=== PATIENT | female | born 1955 ===

== ENCOUNTER → 2021-11-11 | Outpatient (CLI) | payer OTHER | END | disposition home or self-care (01) | LOC: LAB SHORT 08:34 → LAB 08:34 → PLD 08:34 | DX: D48.5 Neoplasm of uncertain behavior of skin (principal) | CPT/HCPCS: 88305 ==

== ENCOUNTER 2024-05-02 10:49 | Day surgery (SDC) | payer OTHER ==
[~2024-05-02] VITALS: Ht 162.6 cm; Wt 46.5 kg
[~2024-05-02 10:49] MED LIST: ESTRADIOL; GABA300 PO; Lactated Ringer's 1,000 ML IV ONE; Lidocaine 2% 5 ML SDV ONE; Lidocaine HCl/Pf 1% 5 ML VIAL ONE
[2024-05-02] MEDS ORDERED: IRON FOLATE-F1 EACH (11:43)
[2024-05-02] MEDS ORDERED: LORAZEPAM1 MG (11:44)
[2024-05-02 11:50] VITALS: BP 121/69
[2024-05-02] MEDS ORDERED: Lactated Ringer's 1,000 ML IV ONE (11:55)
[2024-05-02] MEDS ORDERED: propofoL 50 ML IV ONE (12:20)
[2024-05-02] MEDS ORDERED: Glycopyrrolate 0.2 MG/ML 1MLVIAL ONE (12:20)
[2024-05-02] MEDS ORDERED: Ondansetron HCl 2 MG / ML 2ML Vial ONE (12:20)
== END 2024-05-02 14:06 | disposition home or self-care (01) ==
LOC: ORSCSDS 10:49
PROVIDERS: Internal Medicine Gastroenterology
PROC: 0DBK8ZX Excision of Ascending Colon, Via Natural or Artificial Opening Endoscopic, Diagnostic (ICD-10-PCS; principal; 2024-05-02 12:00)
PROC: 0DBN8ZX Excision of Sigmoid Colon, Via Natural or Artificial Opening Endoscopic, Diagnostic (ICD-10-PCS; principal; 2024-05-02 12:00)
PROC: 0DBL8ZX Excision of Transverse Colon, Via Natural or Artificial Opening Endoscopic, Diagnostic (ICD-10-PCS; principal; 2024-05-02 12:00)
PROC: 0DBH8ZX Excision of Cecum, Via Natural or Artificial Opening Endoscopic, Diagnostic (ICD-10-PCS; principal; 2024-05-02 12:00)
DX: Z12.11 Encounter for screening for malignant neoplasm of colon (principal); Z86.0100 Personal history of colon polyps, unspecified; D12.2 Benign neoplasm of ascending colon; D12.1 Benign neoplasm of appendix; D12.3 Benign neoplasm of transverse colon; D12.5 Benign neoplasm of sigmoid colon; K63.5 Polyp of colon; K57.30 Diverticulosis of large intestine without perforation or abscess without bleeding; K64.4 Residual hemorrhoidal skin tags; G47.33 Obstructive sleep apnea (adult) (pediatric)
CPT/HCPCS: 88305; J2001; J2405; J2704; J7120

== ENCOUNTER 2024-08-09 09:17 | Inpatient (IN) | payer OTHER ==
[~2024-08-09] VITALS: Ht 162.6 cm; Wt 42.5 kg
[~2024-08-09 09:17] MED LIST changes: +IRON FOLATE-F1 EACH; +LORAZEPAM1 MG; -Lactated Ringer's 1,000 ML IV ONE; -Lidocaine 2% 5 ML SDV ONE; -Lidocaine HCl/Pf 1% 5 ML VIAL ONE
[2024-08-09] MEDS ORDERED: NS 1,000 ML IV SCH (09:35)
[2024-08-09] MEDS ORDERED: CefTRIAXone Sodium 1,000 MG in NS 50 ML IV ONE ×2 (09:35→10:05)
[2024-08-09] MEDS ORDERED: Doxycycline Hyclate 100 MG in Dextrose 5% 250 ML IV ONE (09:35)
[2024-08-09 09:47] LABS: Hemoglobin 17.8 g/dL (11.5-16.0); Mean Corpuscular HGB 34.7 pg (26.0-34.0); Mean Corpuscular HGB Conc 35.6 g/dL (31.5-36.5); Mean Corpuscular Volume 98 fL (80-100); Platelet Count 262 K/mm3 (150-400); RDW Coefficient Variation 18.3 % (11.7-14.2); Red Blood Cell Count 5.13 M/mm3 (3.80-5.20)
[2024-08-09 09:50] LABS: NRBC ABSOLUTE 0.06 K/mm3 (0.00-0.02); NRBC Auto 0.3 /100 WBC (0.0-0.2); White Blood Cell Count 23.79 K/mm3 (4.00-11.30)
[2024-08-09] MEDS ORDERED: Vancomycin HCL 1,000 MG in NS 250 ML IV ONE (10:05)
[2024-08-09 10:06] LABS: Albumin, Blood 3.3 g/dL (3.4-5.0); Albumin/Globulin Ratio 0.8 (0.8-1.8); Bilirubin, Total 1.8 mg/dL (0.1-1.0); Bun/Creatinine Ratio 22.2 (12.0-20.0); Calcium, Blood 11.5 mg/dL (8.5-10.1); Creatinine, Blood 0.54 mg/dL (0.40-1.00); Globulin, Blood 4.2 g/dL (2.2-4.0); Potassium, Blood 2.8 mmol/L (3.5-5.5); Thyroid Stimulating Hormone 1.69 uIU/mL (0.360-4.800); Total Protein, Blood 7.5 g/dL (6.4-8.2)
[2024-08-09 10:13] LABS: BASOPHILS PERCENT MAN 0 % (0-2); EOSINOPHILS PERCENT MAN 0 % (0-6); LYMPHOCYTES ABSOLUTE MAN 1.18 K/mm3 (0.84-5.20); LYMPHOCYTES PERCENT MAN 5 % (21-46); METAMYELOCYTE ABSOLUTE MAN 0.23 K/mm3 (0.00-0.00); METAMYELOCYTE PERCENT MAN 1 % (0-0); MONOCYTES ABSOLUTE MAN 4.99 K/mm3 (0.16-1.47); MONOCYTES PERCENT MAN 21 % (4-13); MYELOCYTE ABSOLUTE MAN 0.95 K/mm3 (0.00-0.00); MYELOCYTE PERCENT MAN 4 % (0-0); NEUTROPHILS ABSOLUTE MAN 16.17 K/mm3 (1.96-9.15); PLASMA CELL ABSOLUTE MAN 0.23 K/mm3 (0.00-0.00); PLASMA CELLS PERCENT MAN 1 % (0-0); SEG NEUTROPHILS PERCENT MAN 68 % (41-73); TOTAL CELLS COUNTED 100
[2024-08-09] MEDS ORDERED: Potassium Chl 20MEQ/Water100ML 100 ML IV SCH (10:15)
[2024-08-09 10:45] LABS: Base Excess Venous 3.7 mmol/L; Bicarbonate Venous 26.6 mmol/L (24.0-30.0); PCO2 Venous 42.6 mmHg (38-42); pH Blood Venous 7.43 (7.34-7.37)
[2024-08-09 12:24] LABS: Source, Urine Straight Cath
[2024-08-09 12:34] LABS: Appearance, Urine Clear (Clear); Bilirubin, Urine Neg (Neg); Blood, Urine 5+ (Neg); Color, Urine Yellow (P-Yellow); Glucose Qualitative, Urine Neg (Neg); Ketones, Urine 3+ (Neg); Leukocyte Esterase, Urine 1+ (Neg); Nitrite, Urine Neg (Neg); Protein, Urine 3+ (Neg); Urobilinogen, Urine 2+ (Normal); pH, Urine 6.5 (5.0-8.0)
[2024-08-09 12:47] LABS: Bacteria Few /hpf; Red Blood Cells, Urine 25-50 /hpf (0-2); Squamous Epithelial Cells Few /hpf (Few)
[2024-08-09] MEDS ORDERED: CefTRIAXone Sodium 2,000 MG in NS 100 ML IV ONE (12:55)
[2024-08-09 13:01] LABS: U Amphetamine Screen Not Detected; U Barbituate Screen Not Detected; U Benzodiazapine Screen Not Detected; U Buprenorphine Screen Not Detected; U Cannabinoids Screen DETECTED; U Cocaine Screen Not Detected; U Methadone Screen Not Detected; U Methamphetamine Screen Not Detected; U Opiates Screen Not Detected; U Oxycodone Screen Not Detected; U Phencyclidine Screen Not Detected
[2024-08-09 13:30] LABS: Influenza B, PCR NEGATIVE (NEGATIVE); Resp Syncytial Virus, PCR NEGATIVE (NEGATIVE); SARS-Cov-2 (COVID-19) PCR, MMC NEGATIVE (NEGATIVE)
[2024-08-09 13:36] LABS: Influenza A, PCR POSITIVE (NEGATIVE)
[2024-08-09] MEDS ORDERED: Ondansetron HCl 2 MG / ML 2ML Vial IV PRN (16:30)
[2024-08-09] MEDS ORDERED: Lactated Ringer's 1,000 ML IV ONE (16:40)
[2024-08-09] MEDS ORDERED: Potassium Phosphate Dibasic 30 MM in Dextrose 5% 500 ML IV SCH (18:00)
[2024-08-09] MEDS ORDERED: Lactated Ringer's 1,000 ML IV SCH ×2 (18:00)
[2024-08-09 18:02] LABS: Bun/Creatinine Ratio 21.4 (12.0-20.0); Calcium, Blood 9.9 mg/dL (8.5-10.1); Creatinine, Blood 0.47 mg/dL (0.40-1.00); Potassium, Blood 3.6 mmol/L (3.5-5.5)
[2024-08-09 18:15] VITALS: BP 135/87
--- NOTE | 2024-08-09 18:19 | NUR ---
PT ARRIVED TO MEDICAL FLOOR, ALERT AND ORIENTED TO NONE. WHEN ASKED NAME , PT LOOKS TO THE LEFT AND DOES NOT ANSWER. BOLUS CONTINUED FROM ER. PT APPEARS MALNUTRITIONED, NOT SPEAKING. PURWICK IN PLACE. PT HAS ATTEND FULL OF URINE. BED ALARM ON WITH CALL LIGHT IN REACH. PER DR. LEYDI MUNGUIA TO DRINK AND EAT LONG BEDSIDE SWALLOW EVAL GOES WELL. PT OFFERED WATER,
[2024-08-09 19:25] VITALS: BP 154/82
[2024-08-09] MEDS ORDERED: NS 250 ML IV PRN (20:15)
[2024-08-09] MEDS ORDERED: Azithromycin 500 MG in NS 250 ML IV SCH (21:00)
[2024-08-09] MEDS ORDERED: Lactobacil 2-S.Thermo-Bifido 1 1 Cap PO SCH (21:00)
[2024-08-10 04:22] VITALS: BP 138/90
--- NOTE | 2024-08-10 04:51 | NUR ---
SHIFT SUMMARY. PATIENT IS ALERT TO SELF AND PLACE. PATIENT DOES NOT USE CALL LIGHT BUT WILL YELL OUT HELP. PATIENT IS A 1P ASSIST TO THE BSC. PATIENT HAS BED ALARM ON FOR SAFETY. PATIENT IS PLEASANTLY CONFUSED. SHE IS DIRECTABLE. PATIENT HAS LR INFUSING PER ORDERS. BED IS LOCKED IN THE LOWEST POSITION WITH CALL LIGHT IN REACH. CALL LIGHT IN REACH. CARE IS ONGOING.
[2024-08-10 06:46] LABS: Hematocrit 41.1 % (33.0-51.0); Hemoglobin 14.2 g/dL (11.5-16.0); Mean Corpuscular HGB 34.9 pg (26.0-34.0); Mean Corpuscular HGB Conc 34.5 g/dL (31.5-36.5); Mean Corpuscular Volume 101 fL (80-100); Mean Platelet Volume 12.3 fL (9.1-12.4); NRBC ABSOLUTE 0.04 K/mm3 (0.00-0.02); NRBC Auto 0.2 /100 WBC (0.0-0.2); Platelet Count 271 K/mm3 (150-400); RDW Coefficient Variation 18.1 % (11.7-14.2); RDW Standard Deviation 67.1 fL (35.1-46.3); Red Blood Cell Count 4.07 M/mm3 (3.80-5.20); White Blood Cell Count 25.24 K/mm3 (4.00-11.30)
[2024-08-10 07:03] LABS: Magnesium, Blood 1.8 mg/dL (1.6-2.4)
[2024-08-10 07:04] LABS: Bun/Creatinine Ratio 17.7 (12.0-20.0); Calcium, Blood 10.5 mg/dL (8.5-10.1); Creatinine, Blood 0.45 mg/dL (0.40-1.00); Potassium, Blood 3.1 mmol/L (3.5-5.5)
[2024-08-10 07:14] LABS: BASOPHILS PERCENT MAN 0 % (0-2); EOSINOPHILS PERCENT MAN 0 % (0-6); LYMPHOCYTES PERCENT MAN 2 % (21-46); METAMYELOCYTE ABSOLUTE MAN 1.26 K/mm3 (0.00-0.00); METAMYELOCYTE PERCENT MAN 5 % (0-0); MONOCYTES ABSOLUTE MAN 7.31 K/mm3 (0.16-1.47); MONOCYTES PERCENT MAN 29 % (4-13); NEUTROPHILS ABSOLUTE MAN 16.15 K/mm3 (1.96-9.15); SEG NEUTROPHILS PERCENT MAN 64 % (41-73); TOTAL CELLS COUNTED 100
[2024-08-10] MEDS ORDERED: Potassium Phosphate Dibasic 30 MM in Dextrose 5% 500 ML IV STA ×2 (07:14→17:33)
[2024-08-10] MEDS ORDERED: Magnesium Sulf 2 GM/Water 50ML 50 ML IV ONE (07:20)
[2024-08-10 07:55] VITALS: BP 135/82
[2024-08-10] MEDS ORDERED: Lactated Ringer's 1,000 ML IV SCH (08:00)
[2024-08-10] MEDS ORDERED: Azithromycin 250 MG Tab PO SCH (09:00)
[2024-08-10] MEDS ORDERED: Enoxaparin 40 MG/0.4 ML SYR SC SCH (09:00)
[2024-08-10] MEDS ORDERED: Ferrous Gluconate 325 MG Tablet PO SCH (09:00)
[2024-08-10] MEDS ORDERED: Vitamin B Complex 1 EA Softgel PO SCH (09:00)
[2024-08-10 11:50] LABS: Calcium, Blood 10.9 mg/dL (8.5-10.1); Creatinine, Blood 0.44 mg/dL (0.40-1.00); Phosphorus, Blood 2.6 mg/dL (2.5-4.9); Potassium, Blood 3.5 mmol/L (3.5-5.5)
[2024-08-10] MEDS ORDERED: CefTRIAXone Sodium 2,000 MG in NS 100 ML IV SCH (12:00)
[2024-08-10 12:53] LABS: Albumin, Blood 2.7 g/dL (3.4-5.0); Albumin/Globulin Ratio 0.8 (0.8-1.8); Bun/Creatinine Ratio 16.5 (12.0-20.0); Calcium, Blood 10.5 mg/dL (8.5-10.1); Creatinine, Blood 0.43 mg/dL (0.40-1.00); Globulin, Blood 3.4 g/dL (2.2-4.0); Total Protein, Blood 6.1 g/dL (6.4-8.2)
[2024-08-10] MEDS ORDERED: MIRTAZAPINE7.5 M1 PO (14:52)
[2024-08-10] MEDS ORDERED: ESCI20 PO (14:52)
[2024-08-10] MEDS ORDERED: FEMRING VAG (14:55)
[2024-08-10 15:57] VITALS: BP 133/66
--- NOTE | 2024-08-10 18:14 | NUR ---
SHIFT SUMMARY PT A&O TO SELF AND PLACE BUT IS PLEASANTLY ONFUSED. PT SLOW TO RESPOND. PT HAS A POOR APPETITE, SEEN BY DIETARY TODAY. PT RECEIVED SCHEDULED MEDICATIONS WITH NO ADVERSE REACTIONS. VSS, NO COMPLAINTS OF CP/PRESSURE OR SOB. PT IN ROOM FOR MOST OF SHIFT. PT SPENT MOST OF SHIFT IN BED RESTING OR SITTING UP AT THE SIDE. NO ACUTE EVENTS AT THIS TIME. PT LEFT IN A POSITION OF SAFETY WITH FALL PRECAUTIONS IN PLACE, REPOSITIONED Q2HRS ENCOURAGED, AND CALL LIGHT IN REACH.
[2024-08-10] MEDS ORDERED: Bisacodyl 10 MG Supp PR PRN (18:15)
[2024-08-10] MEDS ORDERED: Polyethylene Glycol 3350 17 gm PO PRN (19:00)
[2024-08-10] MEDS ORDERED: Docusate Sodium 100 MG Cap PO SCH (19:00)
[2024-08-10] MEDS ORDERED: Polyethylene Glycol 3350 17 gm PO ONE (19:00)
[2024-08-10 19:31] VITALS: BP 132/86
[2024-08-10] MEDS ORDERED: Gabapentin 300 MG Cap PO SCH (21:00)
[2024-08-10] MEDS ORDERED: Zinc Sulfate 220 MG Cap (Provides 50MG) PO SCH (21:00)
[2024-08-10] MEDS ORDERED: Protein Supplement 30 ML UD PO SCH (21:00)
[2024-08-11 02:06] VITALS: BP 135/82
--- NOTE | 2024-08-11 04:03 | NUR ---
PATIENT CONFUSED THIS SHIFT. PATIENT ATTEMPTING OOB UNSAFELY, NOT REDIRECTABLE, NOT ABLE TO FOLLOW INSTRUCTION. PATIENT APPEARS TO NOT UNDERSTAND OR HAS DIFFICULTY PROCESSING WHAT IS BEING SAID. PATIENT IS ALERT TO SELF AND PLACE. BED ALARM IS ON FOR SAFETY. PATIENT IS IMPULSIVE. PATIENT LOST BOTH IV'S THIS SHIFT-CHARGE NURSE TO ASSESS AND ATTEMPT TO PLACE IV. PATIENT TRANSFERED FROM ROOM 326 TO ROOM 348.
[2024-08-11 06:32] LABS: Hematocrit 39.3 % (33.0-51.0); Hemoglobin 13.6 g/dL (11.5-16.0); Mean Corpuscular HGB 34.7 pg (26.0-34.0); Mean Corpuscular HGB Conc 34.6 g/dL (31.5-36.5); Mean Corpuscular Volume 100 fL (80-100); NRBC ABSOLUTE 0.05 K/mm3 (0.00-0.02); NRBC Auto 0.2 /100 WBC (0.0-0.2); Platelet Count 243 K/mm3 (150-400); RDW Coefficient Variation 17.6 % (11.7-14.2); RDW Standard Deviation 65.1 fL (35.1-46.3); Red Blood Cell Count 3.92 M/mm3 (3.80-5.20)
[2024-08-11 06:35] LABS: Mean Platelet Volume 13.7 fL (9.1-12.4)
[2024-08-11] MEDS ORDERED: Potassium Phosphate Dibasic 30 MM in Dextrose 5% 500 ML IV STA (06:56)
[2024-08-11 07:25] VITALS: BP 151/83
[2024-08-11 07:27] LABS: BAND PERCENT MAN 2 % (0-8); BASOPHILS PERCENT MAN 0 % (0-2); EOSINOPHILS PERCENT MAN 0 % (0-6); LYMPHOCYTES % ATYPICAL MANUAL 1 % (0-0); LYMPHOCYTES ABSOLUTE MAN 1.15 K/mm3 (0.84-5.20); LYMPHOCYTES PERCENT MAN 4 % (21-46); MONOCYTES ABSOLUTE MAN 6.44 K/mm3 (0.16-1.47); MONOCYTES PERCENT MAN 28 % (4-13); MYELOCYTE ABSOLUTE MAN 0.92 K/mm3 (0.00-0.00); MYELOCYTE PERCENT MAN 4 % (0-0); NEUTROPHILS ABSOLUTE MAN 14.49 K/mm3 (1.96-9.15); SEG NEUTROPHILS PERCENT MAN 61 % (41-73); TOTAL CELLS COUNTED 100
[2024-08-11] MEDS ORDERED: Dronabinol 2.5 MG Cap PO SCH (07:30)
[2024-08-11 08:28] LABS: Albumin, Blood 2.4 g/dL (3.4-5.0); Albumin/Globulin Ratio 0.8 (0.8-1.8); Bilirubin, Total 0.7 mg/dL (0.1-1.0); Calcium, Blood 9.3 mg/dL (8.5-10.1); Creatinine, Blood 0.5 mg/dL (0.40-1.00); Globulin, Blood 3.1 g/dL (2.2-4.0); Phosphorus, Blood 4.3 mg/dL (2.5-4.9); Potassium, Blood 3.5 mmol/L (3.5-5.5); Total Protein, Blood 5.5 g/dL (6.4-8.2)
[2024-08-11] MEDS ORDERED: Citalopram Hydrobromide 20 MG Tab PO SCH (09:00)
[2024-08-11] MEDS ORDERED: Thiamine HCl 100 MG Tab PO SCH (09:00)
[2024-08-11] MEDS ORDERED: Multivitamins 1 Tab PO SCH (09:00)
[2024-08-11] MEDS ORDERED: Folic Acid 1 MG TAB PO SCH (09:00)
[2024-08-11] MEDS ORDERED: Mirtazapine 15 MG Tab PO SCH (09:00)
--- NOTE | 2024-08-11 11:43 | NUR ---
NOTE PT ORIENTED TO SELF AND LOCATION. THIS AM, PT VERY IMPULSIVE GETTING UP TO BS STATING "NEED TO PEE." WAS NOT REDIRECTABLE. CUSTOM FEED CORN OPERATOR AND THIS RN COULD NOT STEP AWAY DUE TO IMPULSIVITY. CUSTOM FEED CORN OPERATOR STATED "PT THREW TELE, SAID THE F WORD." TRIED TO PROVIDE A CALM ENVIROMENT, DR. REED, ROUNDED ON PT, TRIED TO ASSIST WITH PT TAKING MEDS, PT ONLY TOOK MARINOL AND PROBIOTIC. PT REFUSED REST OF MEDS. REQUESTED SITTER FOR PT DUE TO IMPULSIVITY. PT ALSO REFUSED FOOD THIS AM. DR. WOODS ROUNDED ON PT, TOLD HIM MY CONCERNS. HE SAID D/C TELE WAS OK, PT OFF TELE. PT CALLED TO SEE IF SEEING A FAMILIAR FACE WOULD HELP. HE ARRIVED AT 1150. PT CURRENT IN BED WITH EYES CLOSED. UNLABORED EVEN BREATHS.
[2024-08-11 15:03] LABS: Albumin, Blood 2.5 g/dL (3.4-5.0); Albumin/Globulin Ratio 0.8 (0.8-1.8); Bilirubin, Total 0.6 mg/dL (0.1-1.0); Bun/Creatinine Ratio 10.6 (12.0-20.0); Calcium, Blood 9.7 mg/dL (8.5-10.1); Creatinine, Blood 0.47 mg/dL (0.40-1.00); Globulin, Blood 3.3 g/dL (2.2-4.0); Potassium, Blood 3.8 mmol/L (3.5-5.5); Total Protein, Blood 5.8 g/dL (6.4-8.2)
[2024-08-11] MEDS ORDERED: Lactated Ringer's 1,000 ML IV SCH (17:00)
--- NOTE | 2024-08-11 17:10 | NUR ---
MET WITH PATIENT. DISCUSSED WITH DIETITION. DISCUSSED WITH PROVIDER. PLAN IS TO HAVE PSYCH CONSULT, THEN FOLLOW UP NEEDED.
--- NOTE | 2024-08-11 18:12 | NUR ---
SHIFT SUMMARY PT A&0X4. PT ADMITTED FOR SEPSIS W/ ACUTE HYPOXIC RESP FAILURE. PT RECEIVED ANTIBIOTICS IV. PT RECEIVED POTASSIUM PHOS. PT HAS LR RUNNING AT 75ML/HR, PT ON ROOM AIR, SPO2 IS 91%. PT REPORTS NO SOB. PT IS MALNUTRITIONED. PT DECLINED MOST MEDS THIS AM SOME MEDS WERE PT DECLINES ALL MEALS. PT REPORTED DIZZINESS DURING AMBULATION, DR. REED NOTIFIED. PT HAS SITTER, PT HAS BEEN LESS IMPULSIVE WITH PRESENT. PALLIATIVE CARE CONSULTED. CREDIT COLLECTIONS REP CONSULTED. AWAITING SPEECH THERAPY ASSESS TOMORROW, AND POSSIBLE DOBHOFF PLACEMENT FOR FEEDINGS. PT IN BED, BED IN LOWEST POSITION. BED ALARM ON. CALL LIGHT IN REACH.
[2024-08-11 19:32] VITALS: BP 141/95
[2024-08-11] MEDS ORDERED: Oseltamivir Phosphate 75 MG Cap PO ONE (21:00)
[2024-08-11] MEDS ORDERED: Oseltamvir Phosphate 30 MG Cap PO SCH (22:00)
[2024-08-12 03:20] VITALS: BP 136/72
--- NOTE | 2024-08-12 04:28 | NUR ---
WAX BALL KNOCK OUT WORKER SUMMARY PT HAD A BOWEL MOVEMENT THIS SHIFT. HER COGNITION APPEARED TO IMPROVE A LITTLE COMPARED TO YESTERDAY. SHE HAS BEEN ORIENTED X 2, PLEASANT, AND EASILTY REDIRECTABLE, ALTHOUGH SHE STILL FREQUENTLY TRIES TO BED EXIT WITHOUT CALLING FIRST. SITTER AT BEDSIDE. PT IS STILL REFUSING TO EAT. PER REPORT FROM DAY SHIFT NURSE, PT WILL BE GETTING A LOG MARKER EVAL 08/12 AND THEN AFTERWARDS WE WILL BE PLACING A DOBHOFF TUBE. ANTICIPATE THAT PT WILL CONTINUE NEEDING A SITTER TO HELP PREVENT PT PULLING OUT HER DOBHOFF TUBE.
[2024-08-12 06:15] LABS: Hematocrit 36.6 % (33.0-51.0); Hemoglobin 12.8 g/dL (11.5-16.0); Mean Corpuscular HGB 35.4 pg (26.0-34.0); Mean Corpuscular Volume 101 fL (80-100); NRBC ABSOLUTE 0.05 K/mm3 (0.00-0.02); NRBC Auto 0.2 /100 WBC (0.0-0.2); Platelet Count 225 K/mm3 (150-400); RDW Coefficient Variation 17.2 % (11.7-14.2); RDW Standard Deviation 64.4 fL (35.1-46.3); Red Blood Cell Count 3.62 M/mm3 (3.80-5.20); White Blood Cell Count 20.95 K/mm3 (4.00-11.30)
[2024-08-12 06:16] LABS: Mean Platelet Volume 14.1 fL (9.1-12.4)
[2024-08-12 06:47] LABS: Magnesium, Blood 2.1 mg/dL (1.6-2.4)
[2024-08-12 06:48] LABS: Albumin, Blood 2.3 g/dL (3.4-5.0); Albumin/Globulin Ratio 0.8 (0.8-1.8); Bilirubin, Total 0.7 mg/dL (0.1-1.0); Bun/Creatinine Ratio 5.8 (12.0-20.0); Calcium, Blood 9.7 mg/dL (8.5-10.1); Creatinine, Blood 0.52 mg/dL (0.40-1.00); Globulin, Blood 2.9 g/dL (2.2-4.0); Phosphorus, Blood 2.5 mg/dL (2.5-4.9); Potassium, Blood 3.6 mmol/L (3.5-5.5); Total Protein, Blood 5.2 g/dL (6.4-8.2)
[2024-08-12] MEDS ORDERED: Potassium Phosphate Dibasic 30 MM in Dextrose 5% 500 ML IV STA (07:09)
[2024-08-12 07:11] LABS: BAND PERCENT MAN 4 % (0-8); BASOPHILS PERCENT MAN 0 % (0-2); EOSINOPHILS PERCENT MAN 0 % (0-6); LYMPHOCYTES % ATYPICAL MANUAL 1 % (0-0); LYMPHOCYTES ABSOLUTE MAN 1.04 K/mm3 (0.84-5.20); LYMPHOCYTES PERCENT MAN 4 % (21-46); MONOCYTES ABSOLUTE MAN 7.54 K/mm3 (0.16-1.47); MONOCYTES PERCENT MAN 36 % (4-13); MYELOCYTE PERCENT MAN 1 % (0-0); NEUTROPHILS ABSOLUTE MAN 12.15 K/mm3 (1.96-9.15); SEG NEUTROPHILS PERCENT MAN 54 % (41-73); TOTAL CELLS COUNTED 100
[2024-08-12] MEDS ORDERED: Venlafaxine HCl 37.5 MG CapCR PO SCH (09:00)
[2024-08-12] MEDS ORDERED: Mirtazapine 15 MG Tab PO SCH (09:00)
[2024-08-12] MEDS ORDERED: Venlafaxine HCl 75 MG CapCR PO SCH (09:00)
[2024-08-12] MEDS ORDERED: Azithromycin 250 MG Tab PO SCH (09:00)
[2024-08-12 10:30] VITALS: BP 130/91
--- NOTE | 2024-08-12 11:54 | NUR ---
PT STATES NOT GOTTEN OVER LOSS OF HER YELLOW LAB.
--- NOTE | 2024-08-12 13:37 | NUR ---
DR REED STATES NO NG DAUBHOFF. D/C ORDER
[2024-08-12] MEDS ORDERED: Lactated Ringer's 1,000 ML IV SCH (15:00)
--- NOTE | 2024-08-12 17:22 | NUR ---
PT PLEASANT ORIENTED X3 AND COOPERATIVE TODAY. NO C/O PAIN FOR ME. SHE AMBULATED TO BATHROOM X2 FOR ME TODAY. IS QUITE WEAK, BUT DID PRETTY WELL. 1 MIN ASST. IN AND STATES SHES MUCH BETTER. IS EATING ENSURES X2 SO FAR TODAY. PLUS MINIMAL MEALS. DR REED STOPPED FEEDING TUBE. NO FURTHER CONCERNS NOTED TODAY.
[2024-08-12 17:28] VITALS: BP 137/94
[2024-08-12 20:25] VITALS: BP 138/90
[2024-08-13 02:25] VITALS: BP 127/81
[2024-08-13 05:44] LABS: Hematocrit 36.5 % (33.0-51.0); Hemoglobin 12.3 g/dL (11.5-16.0); Mean Corpuscular HGB 34.3 pg (26.0-34.0); Mean Corpuscular HGB Conc 33.7 g/dL (31.5-36.5); Mean Corpuscular Volume 102 fL (80-100); NRBC ABSOLUTE 0.03 K/mm3 (0.00-0.02); NRBC Auto 0.2 /100 WBC (0.0-0.2); Platelet Count 185 K/mm3 (150-400); RDW Coefficient Variation 17.2 % (11.7-14.2); RDW Standard Deviation 64.9 fL (35.1-46.3); Red Blood Cell Count 3.59 M/mm3 (3.80-5.20)
--- NOTE | 2024-08-13 06:00 | NUR ---
PROVIDER NETWORK MGR SUMMARY PTS COGNITION APPEARS TO BE IMPROVING RAPIDLY. SHE IS MUCH MORE ORIENTED THAN YESTERDAY. SHE HAS STARTED PUTTING A LOT OF EFFORT INTO EATING AND DRINKING BECAUSE SHE DOESNT WANT A FEEDING TUBE. SHE HAS BEEN DRINKING ENSURES AND EATING SNACKS AND FEELS MOTIVATED TO HELP HERSELF GET BETTER. SHE STILL DOESNT REMEMBER TO CALL BEFORE GETTING OUT OF BED. HER BED ALARM IS ON AND HER CALL LIGHT IS WITHIN REACH.
[2024-08-13 06:07] LABS: Albumin, Blood 2.3 g/dL (3.4-5.0); Albumin/Globulin Ratio 0.8 (0.8-1.8); Bilirubin, Total 0.5 mg/dL (0.1-1.0); Bun/Creatinine Ratio 13.7 (12.0-20.0); Calcium, Blood 9.8 mg/dL (8.5-10.1); Creatinine, Blood 0.51 mg/dL (0.40-1.00); Globulin, Blood 2.8 g/dL (2.2-4.0); Magnesium, Blood 2.1 mg/dL (1.6-2.4); Phosphorus, Blood 2.6 mg/dL (2.5-4.9); Potassium, Blood 3.8 mmol/L (3.5-5.5); Total Protein, Blood 5.1 g/dL (6.4-8.2)
[2024-08-13 06:14] LABS: BAND PERCENT MAN 3 % (0-8); BASOPHILS PERCENT MAN 0 % (0-2); EOSINOPHILS ABSOLUTE MAN 0.17 K/mm3 (0.00-0.68); EOSINOPHILS PERCENT MAN 1 % (0-6); LYMPHOCYTES % ATYPICAL MANUAL 2 % (0-0); LYMPHOCYTES ABSOLUTE MAN 1.53 K/mm3 (0.84-5.20); LYMPHOCYTES PERCENT MAN 7 % (21-46); METAMYELOCYTE ABSOLUTE MAN 0.17 K/mm3 (0.00-0.00); METAMYELOCYTE PERCENT MAN 1 % (0-0); MONOCYTES ABSOLUTE MAN 4.76 K/mm3 (0.16-1.47); MONOCYTES PERCENT MAN 28 % (4-13); MYELOCYTE ABSOLUTE MAN 0.51 K/mm3 (0.00-0.00); MYELOCYTE PERCENT MAN 3 % (0-0); NEUTROPHILS ABSOLUTE MAN 9.86 K/mm3 (1.96-9.15); SEG NEUTROPHILS PERCENT MAN 55 % (41-73); TOTAL CELLS COUNTED 100
[2024-08-13 08:01] VITALS: BP 137/91
--- NOTE | 2024-08-13 16:29 | NUR ---
PT PLEASANT TODAY. NO C/O PAIN. VERY SLOW AND UNABLE TO ANSWER DETAILED QUESTIONS IN THE MORNING. IMPROVED AFTER 11 AM. SPOKE TO AND HE STATES IS PRETTY MUCH A TREND THAT SHE STAYS UP TO 2-3 AM AND SLEEPS UNTIL 9-10-11 AM. STATES PT IS QUITE DROWSY AND NOT TALKATIVE WHEN FIRST UP IN AM. STATES UNSURE IF WOULD ANSWER DETAILED QUESTIONS WHEN FIRST UP OR NOT. DID NOTICE SHE IS UNSTEADY ON FEET IN AM. PT MORE AWAKE THIS AFTERNOON. DID TAKE SHOWER TODAY. NO OTHER CONCERNS NOTED TODAY.. BED IN LOW POSITION, CALL LITE IN REACH, BED ALARM ON FOR SAFETY
[2024-08-13 16:43] VITALS: BP 151/97
[2024-08-13 19:52] VITALS: BP 142/94
[2024-08-13 20:42] LABS: 25-HYDROXYVITAMIN D2 <1.0 ng/mL; 25-HYDROXYVITAMIN D2 D3 TOTAL 90.3 ng/mL (30.0-80.0); 25-HYDROXYVITAMIN D3 90.3 ng/mL
[2024-08-14 03:33] LABS: ZINC,SERUM/PLASMA 52.5 ug/dL (60.0-120.0)
--- NOTE | 2024-08-14 05:06 | NUR ---
SUPERVISOR CUSTOMER COMPLAINT SERVICE SUMMARY PTS COGNITION WAXES AND WANES BUT OVERALL HER MENTATION IS IMPROVING. SHE IS STILL A LITTLE SLOW TO RESPOND AT TIMES. SHE HAS BEEN PUTTING GOOD EFFORT INTO EATING AND DRINKING. SHE ATE A FEW SNACKS OVERNIGHT AND HAD AN ENSURE AT BEDTIME. HER IVF ORDER HAS AND SHE IS NOW SALINE LOCKED AND WE ARE ENCOURAGING ORAL INTAKE. SHE STILL DOESNT REMEMBER TO CALL BEFORE GETTING OUT OF BED. HER BED ALARM IS ON AND HER CALL LIGHT IS WITHIN REACH.
[2024-08-14 05:49] VITALS: BP 115/70
[2024-08-14 06:25] LABS: Magnesium, Blood 2.4 mg/dL (1.6-2.4); Phosphorus, Blood 3.2 mg/dL (2.5-4.9)
[2024-08-14 07:40] VITALS: BP 130/83
[2024-08-14 07:57] LABS: Hemoglobin 12.6 g/dL (11.5-16.0); Mean Corpuscular HGB 34.8 pg (26.0-34.0); Mean Corpuscular HGB Conc 33.2 g/dL (31.5-36.5); Mean Corpuscular Volume 105 fL (80-100); Mean Platelet Volume 13.5 fL (9.1-12.4); NRBC ABSOLUTE 0.04 K/mm3 (0.00-0.02); NRBC Auto 0.3 /100 WBC (0.0-0.2); Platelet Count 166 K/mm3 (150-400); RDW Coefficient Variation 17.2 % (11.7-14.2); RDW Standard Deviation 67.2 fL (35.1-46.3); Red Blood Cell Count 3.62 M/mm3 (3.80-5.20); White Blood Cell Count 15.57 K/mm3 (4.00-11.30)
[2024-08-14] MEDS ORDERED: Lactated Ringer's 1,000 ML IV SCH (08:00)
[2024-08-14 08:14] LABS: Albumin, Blood 2.2 g/dL (3.4-5.0); Albumin/Globulin Ratio 0.7 (0.8-1.8); Bilirubin, Total 0.4 mg/dL (0.1-1.0); Calcium, Blood 10.4 mg/dL (8.5-10.1); Creatinine, Blood 0.67 mg/dL (0.40-1.00); Globulin, Blood 3.1 g/dL (2.2-4.0); Potassium, Blood 3.6 mmol/L (3.5-5.5); Total Protein, Blood 5.3 g/dL (6.4-8.2)
[2024-08-14 08:19] LABS: BAND PERCENT MAN 1 % (0-8); BASOPHILS PERCENT MAN 0 % (0-2); EOSINOPHILS ABSOLUTE MAN 0.15 K/mm3 (0.00-0.68); EOSINOPHILS PERCENT MAN 1 % (0-6); LYMPHOCYTES ABSOLUTE MAN 1.24 K/mm3 (0.84-5.20); LYMPHOCYTES PERCENT MAN 8 % (21-46); MONOCYTES ABSOLUTE MAN 4.98 K/mm3 (0.16-1.47); MONOCYTES PERCENT MAN 32 % (4-13); NEUTROPHILS ABSOLUTE MAN 9.18 K/mm3 (1.96-9.15); SEG NEUTROPHILS PERCENT MAN 58 % (41-73); TOTAL CELLS COUNTED 100
[2024-08-14 15:22] VITALS: BP 135/91
--- NOTE | 2024-08-14 17:45 | NUR ---
SHIFT SUMMARY PT A&OX3-SLOW TO RESPOND, VSS, AMB W/ ASSIST, VOIDING, AND DENIED PAIN. PT AMBULATED THE HALLWAY X1 THIS SHIFT. PT HAD 15% OF BREAKFAST AND 20% AT LUNCH. PO INTAKE ENCOURAGED. LR CONT TO INFUSE PER ORDER. NO OTHER ACUTE CHANGES. CALL LIGHT WITHIN REACH AND BED ALARM ON FOR SAFETY.
[2024-08-14 20:17] VITALS: BP 134/87
[2024-08-15 02:33] LABS: PTHRP BY LC-MS/MS,PLASMA 4.9 pmol/L (0.0-3.4)
[2024-08-15 06:25] VITALS: BP 135/90
--- NOTE | 2024-08-15 07:10 | NUR ---
ENERGY SCHEDULER SUMMARY PTS COGNITION WAXES AND WANES BUT OVERALL HER MENTATION IS IMPROVING. SHE IS STILL A LITTLE SLOW TO RESPOND AT TIMES. SHE HAS BEEN PUTTING GOOD EFFORT INTO EATING AND DRINKING BUT HER INTAKE IS STILL POOR. SHE HAD AN ENSURE AT BEDTIME. SHE STILL DOESNT REMEMBER TO CALL BEFORE GETTING OUT OF BED. HER BED ALARM IS ON AND HER CALL LIGHT IS WITHIN REACH.
[2024-08-15 07:44] VITALS: BP 139/95
[2024-08-15 08:42] LABS: Hematocrit 38.6 % (33.0-51.0); Mean Corpuscular HGB 34.9 pg (26.0-34.0); Mean Corpuscular HGB Conc 33.7 g/dL (31.5-36.5); Mean Corpuscular Volume 104 fL (80-100); NRBC ABSOLUTE 0.03 K/mm3 (0.00-0.02); NRBC Auto 0.2 /100 WBC (0.0-0.2); Platelet Count 146 K/mm3 (150-400); RDW Coefficient Variation 17.1 % (11.7-14.2); RDW Standard Deviation 65.9 fL (35.1-46.3); Red Blood Cell Count 3.73 M/mm3 (3.80-5.20); White Blood Cell Count 16.28 K/mm3 (4.00-11.30)
[2024-08-15 08:44] LABS: Mean Platelet Volume 14.5 fL (9.1-12.4)
[2024-08-15 09:02] LABS: BAND PERCENT MAN 1 % (0-8); BASOPHILS PERCENT MAN 0 % (0-2); EOSINOPHILS PERCENT MAN 0 % (0-6); LYMPHOCYTES % ATYPICAL MANUAL 4 % (0-0); LYMPHOCYTES ABSOLUTE MAN 2.11 K/mm3 (0.84-5.20); LYMPHOCYTES PERCENT MAN 9 % (21-46); MONOCYTES ABSOLUTE MAN 6.18 K/mm3 (0.16-1.47); MONOCYTES PERCENT MAN 38 % (4-13); NEUTROPHILS ABSOLUTE MAN 7.97 K/mm3 (1.96-9.15); SEG NEUTROPHILS PERCENT MAN 48 % (41-73); TOTAL CELLS COUNTED 100
[2024-08-15 09:06] LABS: Albumin, Blood 2.3 g/dL (3.4-5.0); Albumin/Globulin Ratio 0.7 (0.8-1.8); Bilirubin, Total 0.5 mg/dL (0.1-1.0); Bun/Creatinine Ratio 15.7 (12.0-20.0); Creatinine, Blood 0.64 mg/dL (0.40-1.00); Globulin, Blood 3.4 g/dL (2.2-4.0); Potassium, Blood 3.5 mmol/L (3.5-5.5); Total Protein, Blood 5.7 g/dL (6.4-8.2)
[2024-08-15] MEDS ORDERED: CEFU500T30 PO (13:09)
[2024-08-15] MEDS ORDERED: DRON2.5 PO (13:09)
[2024-08-15] MEDS ORDERED: AZIT500 PO (13:09)
[2024-08-15] MEDS ORDERED: FERSU300 PO (13:09)
[2024-08-15] MEDS ORDERED: FOLI1 PO (13:10)
[2024-08-15] MEDS ORDERED: VISBIOME 112.51 EACH PO (13:10)
[2024-08-15] MEDS ORDERED: B-1100 M1 PO (13:10)
[2024-08-15] MEDS ORDERED: MULVITA PO (13:10)
[2024-08-15] MEDS ORDERED: VENL37.5ER PO (13:11)
[2024-08-15] MEDS ORDERED: ZINC220 PO (13:11)
[2024-08-15] MEDS ORDERED: Vitamin B Comple1 EA PO (13:11)
--- NOTE | 2024-08-15 14:18 | NUR ---
DISCHARGE NOTE PT DISCHARGED HOME AT 1410. PT AND PT'S PROVIDED W/ VERBAL AND WRITTEN INSTRUCTIONS AND REPORTED UNDERSTANDING. PT A&OX4, VSS, AMB W/ ASSIST, TOLERATING PO, VOIDING, AND DENIED PAIN. BELONGINGS WERE RETURNED AND HARD SCRIPT GIVEN. PT ESCOURTED OUT VIA W/C BY KENZIE GUTIERREZ.
== END 2024-08-15 14:30 | disposition home health service (06) | DRG 871 ==
LOC: ER 09:17 → MEDS 16:24
PROVIDERS: Student in an Organized Health Care Education/Training Program; ADMIT Internal Medicine
DX: A41.9 Sepsis, unspecified organism (principal); E43 Unspecified severe protein-calorie malnutrition; G92.8 Other toxic encephalopathy; J18.9 Pneumonia, unspecified organism; J96.01 Acute respiratory failure with hypoxia; R65.20 Severe sepsis without septic shock; K21.9 Gastro-esophageal reflux disease without esophagitis; E87.6 Hypokalemia; E86.0 Dehydration; E83.52 Hypercalcemia; E83.39 Other disorders of phosphorus metabolism; R54 Age-related physical debility; L89.151 Pressure ulcer of sacral region, stage 1; K59.00 Constipation, unspecified; F41.8 Other specified anxiety disorders; Z90.710 Acquired absence of both cervix and uterus; Z98.890 Other specified postprocedural states; Z79.899 Other long term (current) drug therapy; Z68.20 Body mass index [BMI] 20.0-20.9, adult
CPT/HCPCS: 0241U; 36415; 70450; 71045; 71260; 74177; 80048; 80053; 80320; 81001; 82306; 82330; 82542; 82607; 82746; 82803; 83605; 83735; 83880; 83970; 84100; 84145; 84443; 84484; 84630; 85025; 85060; 85379; 87040; 87086; 92526; 92610; 93005; 93010; 94760; 96365-59; 96366; 96368; 97110; 97116; 97162; 97530; 99285-25; A9270; J0456; J0696; J1650; J3370; J3475; J3480; J7030; J7050; J7060; J7120; Q0167; Q9967

== ENCOUNTER → 2025-03-20 | Outpatient (CLI) | payer OTHER ==
[~2025-03-20] MED LIST changes: +AZIT500 PO; +B-1100 M1 PO; +CEFU500T30 PO; +DRON2.5 PO; +ESCI20 PO; +FEMRING VAG; +FERSU300 PO; +FOLI1 PO; +MIRTAZAPINE7.5 M1 PO; +MULVITA PO; +VENL37.5ER PO; +VISBIOME 112.51 EACH PO; +Vitamin B Comple1 EA PO; +ZINC220 PO
[2025-03-20 17:25] LABS: Hematocrit 43.0 % (33.0-51.0); Hemoglobin 14.5 g/dL (11.5-16.0); Mean Corpuscular HGB Conc 33.7 g/dL (31.5-36.5); Mean Corpuscular Volume 100 fL (80-100); NRBC ABSOLUTE 0.05 K/mm3 (0.00-0.02); NRBC Auto 0.4 /100 WBC (0.0-0.2); RDW Coefficient Variation 18.3 % (11.7-14.2); RDW Standard Deviation 64.4 fL (35.1-46.3)
[2025-03-20 18:38] LABS: BAND PERCENT MAN 1 % (0-8); BASOPHILS ABSOLUTE MAN 0.00 K/mm3 (0.00-0.23); BASOPHILS PERCENT MAN 0 % (0-2); EOSINOPHILS ABSOLUTE MAN 0.11 K/mm3 (0.00-0.68); EOSINOPHILS PERCENT MAN 1 % (0-6); LYMPHOCYTES ABSOLUTE MAN 0.89 K/mm3 (0.84-5.20); LYMPHOCYTES PERCENT MAN 8 % (21-46); MONOCYTES ABSOLUTE MAN 3.13 K/mm3 (0.16-1.47); MONOCYTES PERCENT MAN 28 % (4-13); MYELOCYTE ABSOLUTE MAN 0.22 K/mm3 (0.00-0.00); MYELOCYTE PERCENT MAN 2 % (0-0); NEUTROPHILS ABSOLUTE MAN 6.81 K/mm3 (1.96-9.15); SEG NEUTROPHILS PERCENT MAN 60 % (41-73)
[2025-03-20 19:12] LABS: Thyroid Stimulating Hormone 0.661 uIU/mL (0.360-4.800)
[2025-03-20 19:13] LABS: Alanine Aminotransfer (ALT/SGP 41.0 U/L (12-78); Albumin, Blood 3.7 g/dL (3.4-5.0); Albumin/Globulin Ratio 1.2 (0.8-1.8); Anion Gap 11.0 mmol/L (3-11); Aspartate Aminotrans (AST/SGOT 33.0 U/L (12-37); Bilirubin, Total 0.8 mg/dL (0.1-1.0); Blood Urea Nitrogen 14.0 mg/dL (8-24); CO2, Blood 25.0 mmol/L (21-32); Calcium, Blood 10.4 mg/dL (8.5-10.1); Chloride, Blood 103.0 mmol/L (98-108); Creatinine, Blood 0.55 mg/dL (0.40-1.00); Globulin, Blood 3.1 g/dL (2.2-4.0); Glucose, Blood 96.0 mg/dL (70-99); Potassium, Blood 4.5 mmol/L (3.5-5.5); Sodium, Blood 134.0 mmol/L (136-145); Total Protein, Blood 6.8 g/dL (6.4-8.2)
[2025-03-20 20:15] LABS: Platelet Count 114 K/mm3 (150-400)
== END ==
LOC: LAB SHORT 13:40 → LAB 13:40 → LAB FUT 04-06 08:45 → EDSTATUS 04-06 08:45
PROVIDERS: Nurse Practitioner Family
DX: I95.9 Hypotension, unspecified (principal); R63.4 Abnormal weight loss
CPT/HCPCS: 80053; 84443; 85025